=== PATIENT | female | born 1990 | race Caucasian/White ===

== ENCOUNTER → 2017-10-04 | Outpatient (CLI) | payer BC ==
[2017-10-04 17:09] LABS: FREE T4 1.17 NG/DL (0.76-1.46)
== END ==
LOC: M WUC 12:11
DX: N92.6 Irregular menstruation, unspecified (principal)
CPT/HCPCS: 84443

== ENCOUNTER → 2018-04-01 | Outpatient (REF) | payer BC | LOC: M LAB REF 18:48 | DX: R30.0 Dysuria (principal) | CPT/HCPCS: 87186 ==

== ENCOUNTER → 2018-09-05 | Outpatient (CLI) | payer BC ==
--- NOTE | 2018-09-06 09:38 | REP ---
Clinical: Radiculopathy. Technique: AP, lateral, and swimmers views. Findings: Alignment and kyphosis is maintained. Vertebral bodies intact. No acute fracture / compression injury or subluxation. No degenerative changes. Paravertebral soft tissues are normal. Impression: Normal thoracic spine series. Electronically Signed by Jayy Trejo MD 09/06/2018 09:29 A
--- NOTE | 2018-09-06 09:39 | REP ---
Clinical: Neck and back pain radiating to the right upper extremity . Technique: AP, lateral, and open-mouth views. Findings: Alignment and lordosis is maintained. There is no evidence for acute fracture / compression injury or subluxation. No significant degenerative changes are appreciated. Open mouth view demonstrates normal C1-C2 articulation and odontoid process. Impression: Normal cervical spine series. Electronically Signed by Jayy Trejo MD 09/06/2018 09:30 A
== END ==
LOC: M WUC 09:43
PROVIDERS: ATTEND Physician Assistant
DX: M54.14 Radiculopathy, thoracic region (principal); M54.12 Radiculopathy, cervical region